=== PATIENT | male | born 1985 | race Asian ===

== ENCOUNTER 2022-04-06 17:46 | Emergency (ER) | payer OTHER ==
[2022-04-06 18:07] VITALS: BP 114/65; PULSE 72; TEMP 98.1; BMI 24.0
== END 2022-04-06 18:20 | disposition home or self-care (01) ==
LOC: JERFT 17:46
DX: Z11.52 Encounter for screening for COVID-19 (principal)
CPT/HCPCS: 0241U-QW; 99283-25

== ENCOUNTER 2025-04-05 06:50 | Day surgery (SDC) | payer OTHER ==
[2025-03-20 11:28] VITALS: BMI 22.1
[2025-04-05 09:29] VITALS: TEMP 97.5
[2025-04-05 09:49] VITALS: PULSE 55; RESP 15
[2025-04-05 09:51] VITALS: BP 108/66
== END 2025-04-05 10:13 | disposition home or self-care (01) ==
LOC: JASU-ENDO 06:50
PROVIDERS: ATTEND Internal Medicine Gastroenterology
PROC: 0DBN8ZX Excision of Sigmoid Colon, Via Natural or Artificial Opening Endoscopic, Diagnostic (ICD-10-PCS; principal; 2025-04-05 09:00)
DX: Z12.11 Encounter for screening for malignant neoplasm of colon (principal); D12.5 Benign neoplasm of sigmoid colon; K64.8 Other hemorrhoids; R63.4 Abnormal weight loss; R19.5 Other fecal abnormalities
CPT/HCPCS: 88305-TC